=== PATIENT | female | born 1980 ===

== ENCOUNTER 2025-04-14 11:31 | Outpatient (REF) | payer MEDICAID, SELFPAY ==
--- NOTE | ~2025-04-14 | XR_ITS ---
EXAMINATION: XR CHEST CLINICAL INFORMATION: long h/o recurrent dyspnea, chest discomfort. COMPARISON: None available. TECHNIQUE: 2 views of the chest were obtained. FINDINGS: No significant abnormality is noted involving the heart, lungs, mediastinum, bony thorax or soft tissues. XR/XR chest 2V IMPRESSION: No acute disease. Electronically signed by: Morales Mercer MD 04/14/2025 11:50 AM EDT
--- OUTSIDE RECORDS SUMMARY | 2025-04-14 09:20 | XMS_ITS | Encounter Summary ---
Author Organization [employer] Address [address] [place] [address] [place] [address] Care Team Providers Care Licensed Massage Practitioner Name Role Phone Unavailable Primary Care Provider Unavailabl e Reason for Referral * PFT (Routine) - Authorized Specialty Diagnoses / Procedures Referred By Contac t Referred To Contact Diagnoses H/O chest pain H/O shortness of breath Procedures Pulmonary function test Jose Miller MD [address] [place] [phone] Phone: tel: fax: [address] Phone: tel: fax: Referral ID Status Reason Start Date Expiration Date V isits Requested Visits Authorized [id number] Authorized 04/14/2025 04/14/2026 1 1 Reason for Visit * Reason Comments Chest Pain With Breathing Encounter Details Date Type Department Care Team (Late st Contact Info) Description 04/14/2025 9:20 AM EDT Office Visit [facility] [address] [place] [address] [phone] Jose Miller MD [address] [place] [address] [phone] H/O chest pain (Primary Dx); H/O shortness of breath; Seasonal allergic rhinitis, unspecified trigger Social History Tobacco Use Types Packs/Day Years Used Date Smoking Tobacco: Never Passive Smoke Exposure: Never Smokeless Tobacco: Never Tobacco Cessation:Counseling Given: Not Answered Alcohol Use Standard Drinks/Week Comments Never 0 (1 standard drink = 0.6 oz pur e alcohol) Comments Unknown Sex and Gender Information Value Date Recorded Sex Assigned at Female 04/14/2025 8:37 AM EDT Legal Sex Female 3:37 PM EDT Gender Identity Female 04/14/2025 8:37 AM EDT Sexual Orientation Straight 04/14/2025 8: 37 AM EDT documented as of this encounter Last Filed Vital Signs Vital Sign Reading Time Taken Comments Blood Pressure 115/75 04/14/2025 9:02 AM EDT Pulse 79 04/14/2025 9:02 AM EDT Temperature 36.7 C (98.1 F) 04/14/2025 9:02 AM EDT Respiratory Rate 16 04/14/2025 9:02 AM EDT Oxygen Saturation 100% 04/14/2025 9:02 AM EDT Inhaled Oxygen Concentration - - Weight 77.1 kg (170 lb) 04/14/2025 9:02 AM EDT Height - - Body Mass Index - - documented in this encounter Progress Notes * Jose Miller MD - 04/14/2025 9:20 AM EDTAssociated Order(s): ECG 12 lead Pre-Procedure Diagnose(s): H/O chest pain; H/O shortness of breath Post-Procedure Diagnose(s): H/O chest pain; H/O shortness of breath Subjective Patient ID: Cathy Gilliam is a 44 y.o. female, new patient. Came from [facility] 01/2025. Last saw PCP there 11/2024. States tht she will be returning to live in [facility] in 1-2 months. 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 Cathy came to [facility] today because 1 week ago had recurrence intermittent retrosternal chest pain that worsens when she inhales, described as tightness, comes and goes. Has associated SOB. Symptoms started in [place] years ago. States has chronic dry cough. No wheezing, ?Fever. Has had no sx since last week. States that she was evaluated by library supervisor in [facility] in past, had echocardiogram, ?dx. Family hx: father had CVA. Grandmother had h/o asthma. Past med hx: allergic rhinitis, uterine myomas with abnormal uterine bleeding, anxiety, ? heart murmur . Past surgical hx: uterine myomectomy. Lives with . 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 Never Smoked. No EtOH. Illicit substances HPI The following portions of the chart were reviewed this encounter and updated as appropriate: Review of Systems Constitutional: Negative for fever. Respiratory: Negative for shortness of breath. Cardiovascular: Positive for chest pain. Gastrointestinal: Negative for abdominal pain. Skin: Negative for rash. Neurological: Negative for headaches. Objective Physical Exam Constitutional: Appearance: Normal appearance. HENT: Right Ear: Tympanic membrane, ear canal and external ear normal. Left Ear: Tympanic membrane, ear canal and external ear normal. Nose: Nose normal. Mouth/Throat: Mouth: Mucous membranes are moist. Pharynx: Oropharynx is clear. Eyes: Conjunctiva/sclera: Conjunctivae normal. Pupils: Pupils are equal, round, and reactive to light. Cardiovascular: Rate and Rhythm: Normal rate and regular rhythm. Heart sounds: No murmur heard. Pulmonary: Effort: Pulmonary effort is normal. Breath sounds: Normal breath sounds. Musculoskeletal: General: Normal range of motion. Cervical back: No tenderness. Skin: Findings: No rash. Neurological: Mental Status: She is alert. Gait: Gait is intact. Psychiatric: Mood and Affect: Mood normal. Behavior: Behavior normal. ECG 12 lead Date/Time: 04/14/2025 11:05 AM Performed by: Jose Miller MD Authorized by: Jose Miller MD Previous ECG: Previous ECG: Unavailable Interpretation: Interpretation: normal Rate: ECG rate: 71 ECG rate assessment: normal Rhythm: Rhythm: sinus rhythm Ectopy: Ectopy: none QRS: QRS axis: Normal QRS intervals: Normal QRS conduction: normal ST segments: ST segments: Normal T waves: T waves: normal Q waves: Abnormal Q-waves: not present Assessment/Plan Diagnoses and all orders for this visit: H/O chest pain Asymptomatic for past week. EKG: normal. Advised to go to the ED if chest tightness recurs. Unable to refer to cardiology because of the patient's health insurance. Return to clinic for concerns prior to returning to [facility] - Pulmonary function test; Future - XR Chest 2 Views; Future - ECG 12 lead H/O shortness of breath PFTs and chest x-ray ordered. Prescribed albuterol HFA with spacer to try if shortness of breath recurs. If no change with albuterol, go to the ED. - Pulmonary function test; Future - XR Chest 2 Views; Future - ECG 12 lead Seasonal allergic rhinitis, unspecified trigger Prescribed Flonase. Return to clinic if not improving Other orders - albuterol 108 (90 Base) MCG/ACT inhaler; Inhale 2 puffs every 4 (four) hours if needed for wheezing or shortness of breath. - Spacer/Aero-Holding Chambers (OptiChamber Tomasa) misc; 1 each every 4 (four) hours if needed (asthma). - fluticasone (Flonase Allergy Relief) 50 MCG/ACT nasal spray; Administer 1 spray into each nostrilOnce per day. Shake gently. Before first use, prime pump. After use, clean tip and replace cap. documented in this encounter Plan of Treatment Scheduled Orders Name Type Priority Associated Diagnoses Orde r Schedule Pulmonary function test PFT Routine H/O chest pain H/O shortness of breath Expected: 04/14/2025 (Approximate), Expires: 04/14/2026 documented as of this encounter Procedures Procedure Name Priority Date/Time Associated Diagnosis Comments XR CHEST 2 VIEWS Routine 04/14/2025 11:5 7 AM EDT H/O chest pain H/O shortness of breath ECG 12-LEAD Routine 04/14/2025 11:05 AM EDT H/O chest pain H/O shortness of breath documented in this encounter Results * XR Chest 2 Views (04/14/2025 11:57 AM EDT) Anatomical Region Laterality Modality Chest Radiographic Whit ging 04/14/2025 11:5 7 AM EDT Narrative 04/14/2025 11:53 AM EDT [address] [address] XRay Report Signed Patient: Cathy Burroughs MR#: [id number] : 1980 Acct:[id number] Age/Sex: 44 / F ADM Date: 04/14/25 Loc: [facility]X Attending Dr: Jose Miller MD Ordering Physician: JOSE MILLER MD Date of Service: 04/14/25 Procedure(s): XR chest 2V Accession Number(s): [id number] cc: JOSE MILLER MD Reason for Exam: long h/o recurrent dyspnea, chest discomfort. EXAMINATION: XR CHEST CLINICAL INFORMATION: long h/o recurrent dyspnea, chest discomfort. COMPARISON: None available. TECHNIQUE: 2 views of the chest were obtained. FINDINGS: No significant abnormality is noted involving the heart, lungs, mediastinum, bony thorax or soft tissues. XR/XR chest 2V IMPRESSION: No acute disease. Electronically signed by: Morales Mercer MD 04/14/2025 11:50 AM EDT RP Dictated By: Morales Mercer MD Signed By: <Electronically signed by Morales Mercer MD in OV> 04/14/25 1150 DD/ 1157 TD/TT: 04/14/25 1147 Computer Scientist: Procedure Note Donotuseinterpreter, Image - 04/14/2025 [place] [address] XRay Report Signed Patient: Cathy Burroughs MR#: [id number] : 1980Acct:[id number] Age/Sex: 44 / FADM Date: 04/14/25 [facility] Attending Dr: Jose Miller MD Ordering Physician: JOSE MILLER MD Date of Service: 04/14/25 Procedure(s): XR chest 2V Accession Number(s): [id number] cc: JOSE MILLER MD Reason for Exam: long h/o recurrent dyspnea, chest discomfort. EXAMINATION: XR CHEST CLINICAL INFORMATION: long h/o recurrent dyspnea, chest discomfort. COMPARISON: None available. TECHNIQUE: 2 views of the chest were obtained. FINDINGS: No significant abnormality is noted involving the heart, lungs, mediastinum, bony thorax or soft tissues. XR/XR chest 2V IMPRESSION: No acute disease. Electronically signed by: Morales Mercer MD 04/14/2025 11:50 AM EDT RP Dictated By: Morales Mercer MD Signed By: <Electronically signed by Morales Mercer MD in OV> 04/14/25 1150 DD/ 1157 TD/TT: 04/14/25 1147 Computer Scientist: Jose Miller MD IMG XR PROCEDURES Edited Result - Final * ECG 12 lead (04/14/2025 11:05 AM EDT) Jose Rodrigues MD - 04/14/2025 11:05 AM EDT Jose Miller MD 04/14/2025 1:53 PM ECG 12 lead Date/Time: 04/14/2025 11:05 AM Performed by: Jose Miller MD Authorized by: Jose Miller MD Previous ECG: Previous ECG: Unavailable Interpretation: Interpretation: normal Rate: ECG rate: 71 ECG rate assessment: normal Rhythm: Rhythm: sinus rhythm Ectopy: Ectopy: none QRS: QRS axis: Normal QRS intervals: Normal QRS conduction: normal ST segments: ST segments: Normal T waves: T waves: normal Q waves: Abnormal Q-waves: not present Jose Miller MD ECG ORDERABLES Final Result documented in this encounter Visit Diagnoses Diagnosis H/O chest pain- Primary H/O shortness of breath Seasonal allergic rhinitis, unspecified trigger documented in this encounter
--- OUTSIDE RECORDS SUMMARY | 2025-04-14 14:53 | XMS_ITS | Encounter Summary ---
Author Organization [employer] Address [address] [place] [address] [address] [place] [address] Care Team Providers Care Monument Setter Helper Name Role Phone Unavailable Primary Care Provider Unavailabl e Encounter Details Date Type Department Care Team (Latest Contact Info) Description 04/14/2025 Travel Social History Tobacco Use Types Packs/Day Years Used Date Smoking Tobacco: Never Passive Smoke Exposure: Never Smokeless Tobacco: Never Alcohol Use Standard Drinks/Week Comments Never 0 (1 standard drink = 0.6 oz pur e alcohol) Comments Unknown Sex and Gender Information Value Date Recorded Sex Assigned at Female 04/14/2025 8:37 AM EDT Legal Sex Female 3:37 PM EDT Gender Identity Female 04/14/2025 8:37 AM EDT Sexual Orientation Straight 04/14/2025 8 :37 AM EDT documented as of this encounter Plan of Treatment Not on file documented as of this encounter Visit Diagnoses Not on filedocumented in this encounter
--- OUTSIDE RECORDS SUMMARY | 2025-04-14 14:53 | XMS_ITS | Encounter Summary ---
Author Organization [employer] Address [address] [place] [address] [address] [place] [address] Care Team Providers Care Senior Administrative Support Name Role Phone Unavailable Primary Care Provider Unavailabl e Encounter Details Date Type Department Care Team (Late st Contact Info) Description 04/14/2025 Telephone [facility]LL[facility] [address] [place] [address] Tabitha aCll MD [address] [place] [address] Social History Tobacco Use Types Packs/Day Years [...] AM EDT documented as of this encounter Miscellaneous Notes * Telephone Encounter - Soila Dior - 04/14/2025 2:00 PM EDT Patient added to [facility] New Patient wait list as of 04/14/25. * Telephone Encounter - Gurvinder Vu - 04/14/2025 1:00 PM EDT Cathy Gilliam was seen by insurance enrollment department and can have a newpatient appointment scheduled. documented in this encounter Plan of Treatment Not on file documented as of this encounter Visit Diagnoses Not on filedocumented in this encounter
--- OUTSIDE RECORDS SUMMARY | 2025-04-14 14:53 | XMS_ITS | Clinical Summary ---
Author Organization [employer] Address [address] [place] [address] [address] [place] [address] Care Team Providers Care Search Lead Name Role Phone Unavailable Primary Care Provider Unavailabl e Allergies No known active allergies Medications albuterol 108 (90 Base) MCG/ACT inhaler Inhale 2 puffs every 4 (four) hours if needed for wheezing or shortness of breath. 18 g 1 5 04/14/20 26 Active Spacer/Aero-Hol ding Chambers (OptiChamber Tomasa) misc 1 each every 4 (four) hours if needed (asthma). 1 each 5 Active fluticasone (Flonase Allergy Relief) 50 MCG/ACT nasal spray Administer 1 spray into each nostril Once per day. Shake gently. Before first use, prime pump. After use, clean tip and replace cap. 16 g 1 5 04/14/20 26 Active Active Problems Problem Noted Date Diagnosed Date Seasonal allergic rhinitis 04/14/2025 History of myomectomy 04/14/2025 Anxiety 04/14/2025 Encounters Date Type Department Care Team Description 04/14/2025 9:20 AM EDT Office Visit [facility] [address] [place] [address] Jose Miller MD H/O chest pain (Primary Dx); H/O shortness of breath; Seasonal allergic rhinitis, unspecified trigger 04/14/2025 Telephone [facility] INS ENROLLMENT [address] [place] [address] Tabitha Call MD 04/14/2025 Travel from Last 3 Months Social History Tobacco Use Types Packs/Day Years [...] Orientation Straight 04/14/2025 8: 37 AM EDT Last Filed Vital Signs Vital Sign Reading [...] - - Body Mass Index - - Plan of Treatment Health Maintenance Due Date Last Done Comments Depression Screening 1980 HIV Screening 1980 SDOH Screening 1980 Disability Screening 1982 Alcohol/Substance Use Screening 1994 Family Planning (PISQ) 1997 HPV Vaccines (1 - 3-dose series) 1997 Hepatitis C Screening 2000 DTaP/Tdap/Td Vaccines (1 - Tdap) 2001 Hepatitis B Vaccines (1 of 3 - 19+ 3-dose series) 2001 Mammogram 2022 COVID-19 Vaccine (1 - 2023-2 5 season) 2025 Influenza Vaccine (#1) 2025 Tobacco Screening 04/14/2026 04/14/2025 Zoster Vaccines (1 of 2) 2032 RSV Patients and Pa tients Aged 60 years or older (1 - 1-dose 75+ series) 2057 HIB Vaccines Aged Out No longer eligi ble based on patient's age to complete this topic Hepatitis A Vaccines Aged Out No long er eligible based on patient's age to complete this topic IPV Vaccines Aged Out No longer eligi ble based on patient's age to complete this topic Meningococcal B Vaccine Aged Out No l onger eligible based on patient's age to complete this topic Meningococcal Vaccine Aged Out No malaika valdez eligible based on patient's age to complete this topic Pneumococcal Vaccine: Pediat rics (0 to 5 Years) and At-Risk Patients (6 to 49) Years Aged Out No longer eligi ble based on patient's age to complete this topic RSV under 20 months Aged Out No longe r eligible based on patient's age to complete this topic Rotavirus Vaccines Aged Out No longer eligible based on patient's age to complete this topic Procedures Procedure Name Priority Date/Time Associated Diagnosis Comments XR CHEST 2 VIEWS Routine 04/14/2025 11:5 7 AM EDT H/O chest pain H/O shortness of breath ECG 12-LEAD Routine 04/14/2025 11:05 AM EDT H/O chest pain H/O shortness of breath from Last 3 Months Results * XR Chest 2 Views (04/14/2025 11:57 AM EDT) Anatomical Region Laterality Modality Chest Radiographic Whit ging 04/14/2025 11:5 7 AM EDT Narrative 04/14/2025 11:53 AM EDT [address] [address] XRay Report Signed Patient: Cathy Burroughs MR#: [id number] : 1980 Acct:[id number] Age/Sex: 44 / F ADM Date: 04/14/25 Loc: HO.HHCX Attending Dr: Jose Miller MD Ordering Physician: JOSE MILLER MD Date of Service: 04/14/25 Procedure(s): XR chest 2V Accession Number(s): [id number] cc: JOSE MILLER MD Reason for Exam: [...] OV> 04/14/25 1150 DD/ 1157 TD/TT: 04/14/25 114 Trial Judge: Procedure Note Donotuseinterpreter, Image - 04/14/2025 [place] [address] XRay Report Signed Patient: Cathy Burroughs MR#: [id number] : 1980Acct:[id number] Age/Sex: 44 / FADM Date: 04/14/25 Loc: .HHCX Attending Dr: Jose Miller MD Ordering Physician: JOSE MILLER MD Date of Service: 04/14/25 Procedure(s): XR chest 2V Accession Number(s): [id number] cc: JOSE MILLER MD Reason for Exam: [...] 04/14/25 1150 DD/ 1157 TD/TT: 04/14/25 1147 Trial Judge: Jose Miller MD IMG XR PROCEDURES Edited [...] Jose Miller MD ECG ORDERABLES Final Result from Last 3 Months Insurance LIMITED HSN FULL
== END 2025-04-14 11:32 | disposition home or self-care (01) ==
LOC: HO.HHCX 11:31
PROVIDERS: Visit Provider Emergency Medicine
DX: Z87.898 Personal history of other specified conditions (principal)
CPT/HCPCS: 71046

== ENCOUNTER → 2025-04-14 11:34 | Outpatient (BNV) | payer MEDICAID, SELFPAY | PROVIDERS: Visit Provider Radiology Diagnostic Radiology | DX: R07.9 Chest pain, unspecified (principal) | CPT/HCPCS: 71046 ==

== ENCOUNTER 2025-07-27 11:39 | Outpatient (REF) | payer MEDICAID, OTHER, SELFPAY ==
--- OUTSIDE RECORDS SUMMARY | 2025-07-27 11:00 | XMS_ITS | Encounter Summary ---
Author Organization [employer] Address [address] [place] [address] Care Team Providers Care Coding Compliance Specialist Name Role Phone Magda Blunt MD Primary Care Provider [phone] Reason for Visit * Reason Comments Cervical Cancer Screening Encounter Details Date Type Department Care Team (Latest Contact Info) Description 07/27/2025 11:00 AM EST Procedure Visit [facility] [address] [place] [address] Magda Blunt MD [address] [place] [address] Cervical cancer screening (Primary Dx) Social History Tobacco Use Types Packs/Day Years Used Date Smoking Tobacco: Never Passive Smoke Exposure: Never Smokeless Tobacco: Never Alcohol Use Standard Drinks/Week Comments Never 0 (1 standard drink = 0.6 oz pur e alcohol) Depression Answer Date Recorded Patient Health Questionnaire-9 Score 0 07/27/2025 Patient Health Questionnaire-9 Score 0 07/27/2025 Last PHQ-9: Questionnaire Data Not on file 1 Housing Stability Answer Date Recorded What is your housing situation today? I have shekhar guy 07/27/[address] you li ve. Do you have problems with any of the following? None of the above 07/27/2025 Food Insecurity Answer Date Recorded Within the past 12 months, y ou worried that your food would run out before you got money to buy more: Never True 07/27/2025 Within the past 12 months,th e food you bought just didn't last and you didn't have enough money to get more: Never True Transportation Answer Date Recorded In the past 12 months, has l ack of transportation kept you from medical appts, meetings, work or from getting things needed for daily living? No 07/27/2025 Utilities Answer Date Recorded In the past 12 months, has t he electric, gas, oil or water company threatened to shut off services in your home? No 07/27/2025 Depression Answer Date Recorded Patient Health Questionnaire-2 Score 0 07/27/2025 Internet Access Answer Date Recorded Internet Access Q1 Yes 07/27/2025 Internet Access Q2 Not on file 07/27/2025 Comments Unknown Sex and Gender Information Value Date Recorded Sex Assigned at Female 04/14/2025 8:37 AM EDT Legal Sex Female 3:37 PM EDT Gender Identity Female 04/14/2025 8:37 AM EDT Sexual Orientation Straight 04/14/2025 8: 37 AM EDT documented as of this encounter Last Filed Vital Signs Vital Sign Reading Time Taken Comments Blood Pressure 124/82 07/27/2025 11:00 AM EST Pulse 76 07/27/2025 11:00 AM EST Temperature 37.1 C (98.7 F) 07/27/2025 11:00 AM EST Respiratory Rate 20 07/27/2025 11:00 AM EST Oxygen Saturation 98% 07/27/2025 11:00 AM EST Inhaled Oxygen Concentration - - Weight 77.2 kg (170 lb 3.2 oz) 07/27/2025 11:00 AM EST Height 167.6 cm (5' 6 ) 07/27/2025 11:00 AM EST Body Mass Index 27.47 07/27/2025 11:00 AM EST documented in this encounter Functional Status * SBIRT - Alcohol Question Answer Date of Assessment Author How many times in the past y ear have you had 5 or more (for men) or 4 or more (for women) drinks in a day? 0 07/27/2025 11:53 AM EST Bety Dumas MA Score 0 07/27/2025 11:53 AM EST Bety Rosenberg MA * SBIRT - Drugs Question Answer Date of Assessment Author How many times in the past y ear have you used an illegal drug or used a prescription medication for non-medical reasons? 0 07/27/2025 11:53 AM Beyt Moncada MA Score 0 07/27/2025 11:53 AM Bety Jordan MA * Over the past 2 weeks, how often have you been bothered by any of the following problems? Question Answer Date of Assessment Author Patient Health Questionnaire -2 Score 0 07/27/2025 11:52 AM Bety Moncada MA * Little interest or pleasure in doing things Answer Date of Assessment Author Not at all 07/27/2025 11:52 AM Bety Moncada MA * Feeling down, depressed, or hopeless Answer Date of Assessment Author Not at all 07/27/2025 11:52 AM Bety Moncada MA * Trouble falling or staying asleep, or sleeping too much Answer Date of Assessment Author Not at all 07/27/2025 11:52 AM Bety Moncada MA * Feeling tired or having little energy Answer Date of Assessment Author Not at all 07/27/2025 11:52 AM Bety Moncada MA * Poor appetite or overeating Answer Date of Assessment Author Not at all 07/27/2025 11:52 AM Bety Moncada MA * Feeling bad about yourself - or that you are a failure or have let yourself or your family down Answer Date of Assessment Author Not at all 07/27/2025 11:52 AM Bety Moncada MA * Trouble concentrating on things, such as reading the newspaper or watching television Answer Date of Assessment Author Not at all 07/27/2025 11:52 AM Bety Moncada MA * Moving or speaking so slowly that other people could have noticed? Or the opposite - being so fidgety or restless that you have been moving around a lot more than usual. Answer Date of Assessment Author Not at all 07/27/2025 11:52 AM Bety Moncada MA * Thoughts that you would be better off or hurting yourself in some way Answer Date of Assessment Author Not at all 07/27/2025 11:52 AM Bety Moncada MA * Patient Health Questionnaire-9 Score Answer Date of Assessment Author 0 07/27/2025 11:52 AM Bety Moncada MA * Over the last 2 weeks, how often have you been bothered by any of the following problems? Question Answer Date of Assessment Author Feeling nervous, anxious, or on edge 0 07/27/2025 11:52 AM Bety Moncada MA Not being able to stop or co ntrol worrying 0 07/27/2025 11:52 AM Bety Moncada MA Worrying too much about diff erent things 0 07/27/2025 11:52 AM Bety Moncada MA Trouble relaxing 0 07/27/2025 11:52 AM Bety Moncada MA Being so restless that it is hard to sit still 0 07/27/2025 11:52 AM Bety Moncada MA Becoming easily annoyed or irritable 0 07/27/2025 11:52 AM Bety Moncada MA Feeling afraid as if somethi ng awful might happen 0 07/27/2025 11:52 AM Bety Moncada MA LISSY-7 Total Score 0 07/27/2025 11:52 AM Bety Moncada MA documented as of this encounter Progress Notes * Magda Blunt MD - 07/27/2025 11:00 AM EST Subjective Patient ID: Cathy Gilliam is a 44 y.o. female who presents for Cervical Cancer Screening. 44 y.o. female here for annual well woman preventive exam. LMP: No LMP recorded. Sexual activity: Social History Substance and Sexual Activity Sexual activity: Yes control/protection: None intention: BC method: Smoking hx: Tobacco Use: Low Risk (07/27/2025) Tobacco Smoking Tobacco Use: Never Smokeless Tobacco Use: Never Passive Exposure: Never Alcohol use hx: Social History Substance and Sexual Activity Alcohol use: Never OBHx: The patient has never been . IPV: Denies IPV Reviewed family hx Review of patient's family history indicates: Problem: Diabetes Relation: Mother Name: Age of Onset: (Not Specified) Health Maintenance: No results found for: HMPAP , HMMAMMO , HMCOLON Review of Systems Constitutional: Negative for appetite change, fatigue and fever. HENT: Negative for congestion, postnasal drip and rhinorrhea. Eyes: Negative for discharge and redness. Respiratory: Negative for apnea, cough, chest tightness and shortness of breath. Cardiovascular: Negative for chest pain. Gastrointestinal: Negative for abdominal pain. Endocrine: Negative for polyphagia. Genitourinary: Negative for difficulty urinating, dysuria and urgency. Musculoskeletal: Negative for arthralgias. Neurological: Negative for dizziness, light-headedness, numbness and headaches. Hematological: Negative for adenopathy. Does not bruise/bleed easily. Objective BP 124/82 Pulse 76 Temp 98.7 ??F (37.1 ??C) (Oral) Resp 20 Ht 5' 6 (1.676 m) Wt 170 lb 3.2 oz (77.2 kg) SpO2 98% BMI 27.47 kg/m?? Physical Exam Vitals reviewed. Exam conducted with a certified nursing assistant instructor present. HENT: Head: Normocephalic and atraumatic. Pulmonary: Effort: Pulmonary effort is normal. Chest: Chest wall: No deformity, tenderness or crepitus. Breasts: Breasts are symmetrical. Right: Normal. No inverted nipple, mass, nipple discharge, skin change or tenderness. Left: Normal. No inverted nipple, mass, nipple discharge, skin change or tenderness. Genitourinary: Urethra: No prolapse. Vagina: Normal. Cervix: Normal. Rectum: Normal. Musculoskeletal: Cervical back: Normal range of motion. Lymphadenopathy: Upper Body: Right upper body: No supraclavicular, axillary or pectoral adenopathy. Left upper body: No supraclavicular, axillary or pectoral adenopathy. Psychiatric: Mood and Affect: Mood normal. Assessment/Plan Problem List Items Addressed This Visit Cervical cancer screening - Primary 44 y.o. here for cervical cancer screening. Will continue monitoring following ASCCP guidelines. Relevant Orders Pap Smear HPV High Risk with Reflex to Subtypes documented in this encounter Miscellaneous Notes * Assessment & Plan Note - Magda Blunt MD - 07/27/2025 11:39 AM EST Associated Problem(s): Cervical cancer screening 44 y.o. here for cervical cancer screening. Will continue monitoring following ASCCP guidelines. documented in this encounter Plan of Treatment Scheduled Orders Name Type Priority Associated Diagnoses Orde r Schedule Pap Smear Pathology and Cytology Routine Cervical cancer screening Ordered: 07/27/2025 HPV High Risk with Reflex to Subtypes Lab Routine Cervical cancer screening Ordered: 07/27/2025 documented as of this encounter Visit Diagnoses Diagnosis Cervical cancer screening- Primary Screening for malignant neoplasm of the cervix documented in this encounter Additional Health Concerns Assessment Noted Time PHQ-9 Depression Total Score: 0 07/27/20 11:52 AM EST documented as of this encounter Care Teams Coding Compliance Specialist Relationship Specialty Start Date End Date Magda Blunt MD [address] [place] [id number] PCP - General Family Medicine 07/19/25 documented as of this encounter
--- OUTSIDE RECORDS SUMMARY | 2025-07-28 11:16 | XMS_ITS | Clinical Summary ---
Author Organization [employer] Address [address] [place] [address] 7 [place] [address] Care Team Providers Care Crtts Name Role Phone Magda Blunt MD Primary Care Provider [phone] Allergies No known active allergies Medications * This document contains information received from the source organization and may not represent a complete record from that organization. albuterol 108 (90 Base) MCG/ACT inhaler Inhale [...] 16 g 1 5 04/14/20 26 Active Minoxidil (Minoxidil for Men) 5 % solution Apply 1 mL topically 2 times daily. 60 mL 1 5 Active Active Problems Problem Noted Date Diagnosed Date Cervical cancer screening 07/27/2025 Assessment & Plan (07/27/2025 11:39 AM EST): 44 y.o. here for cervical cancer screening. Will continue monitoring following ASCCP guidelines. Abnormal uterine bleeding 07/19/2025 Other fatigue 07/19/2025 History of uterine fibroid 05/22/2025 Pelvic pain 05/22/2025 Seasonal allergic rhinitis 04/14/2025 History of myomectomy 04/14/2025 Anxiety 04/14/2025 Encounters * This document contains information received from the source organization and may not represent a complete record from that organization. Date Type Department Care Team Description 07/27/2025 11:00 AM EST Procedure Visit [facility] [address] [place] [address] Magda Blunt MD Cervical cancer screening (Primary Dx) 07/27/2025 Travel 07/26/2025 Telephone [facility] [address] [place] [address] Magda Blunt MD chart prep 07/19/2025 1:15 PM EST Office Visit [facility] [address] [place] [address] Magda Blunt MD Abnormal uterine bleeding (Primary Dx); Encounter for health-related screening; Alopecia; Breast cancer screening by mammogram; Other fatigue; Anxiety; Encounter for immunization 07/19/2025 Travel 07/16/2025 Telephone [facility] [address] [place] [address] Siobhan Goncalves MA Chart Prep 07/12/2025 Patient Outreach [facility] [address] [place] [address] Magda Blunt MD Pre-visit Planning ([facility] unable to reach [facility]) 04/27/2025 Telephone [facility] [address] [place], [place] [phone] Dioni Colbert MD from Last 3 Months Immunizations Immunization Administration Dates Next Due Influenza, seasonal, injectable, preservative fr ee 07/19/2025 Tdap 07/19/2025 Family History Medical History Relation Name Comments Diabetes Mother Relation Name Status Comments Mother Social History Tobacco Use Types Packs/Day Years [...] Mass Index 27.47 07/27/2025 11:00 AM EST Plan of Treatment Health Maintenance Due Date Last Done Comments HIV Screening 1982 Family Planning (PISQ) 1997 HPV Vaccines (1 - 3-dose series) 1997 Hepatitis C Screening 2000 Hepatitis B Vaccines (1 of 3 - 19+ 3-dose series) 2001 Pap Smear 11/28/2003 Cervical Cancer Screening 2012 HPV/Cotest 2012 Mammogram 2022 COVID-19 Vaccine (1 - 2024-2 6 season) 2025 Disability Screening 07/19/2026 07/19/2025 Alcohol/Substance Use Screening 07/27/2026 07/27/2025 Depression Screening 07/27/2026 07/27/2025, 07/27/2025 SDOH Screening 07/27/2026 07/27/2025 Tobacco Screening 07/27/2026 07/27/2025 Zoster Vaccines (1 of 2) 2032 DTaP/Tdap/Td Vaccines (2 - T d or Tdap) 07/19/2035 07/19/2025 RSV Patients and Patients Aged 60 years or older (1 - 1-dose 75+ series) 2057 Influenza Vaccine Completed 07/19/2025 HIB Vaccines Aged Out No longer eligi [...] age to complete this topic Pneumococcal Vaccine: Pediatrics (0 to 5 Years) and At-Risk Patients (6 to 49) Years Aged Out No longer eligible b ased on patient's age to complete this topic RSV under 20 months Aged Out No longe r eligible based on patient's age to complete this topic Rotavirus Vaccines Aged Out No longer eligible based on patient's age to complete this topic Insurance [facility] HSN FULL Care Teams Crtts Relationship Specialty Start Date End Date Magda Blunt MD [address] [place] [id number] PCP - General Family Medicine 07/19/25
--- OUTSIDE RECORDS SUMMARY | 2025-07-28 11:16 | XMS_ITS | Encounter Summary ---
Author Organization [employer] Address [address] [place] [address] Care Team Providers Care Senior Research Associate Name Role Phone Magda Blunt MD Primary Care Provider [phone] Reason for Visit * Reason Onset Date Comments chart prep 07/26/2025 Encounter Details Date Type Department Care Team ([facility] st Contact Info) Description 07/26/2025 Telephone [facility] [address] [place] [address] Magda Blunt MD [address] [place] [address] chart prep Social History Tobacco Use Types Packs/Day Years [...] encounter Miscellaneous Notes * Telephone Encounter - Annika Reyes MA - 07/26/2025 10:21 AM EST Chart Prep Labs: not done Images: not done (appointment pending) Referrals: appointment pending Vaccines due: Covid, Hep B, and HPV Screenings: mammogram, STI screening, and PISQ Overdue care gaps: SBIRT, SDOH, PHQ-9, and LISSY-7 documented in this encounter Plan of Treatment Not on file documented as of this encounter Visit Diagnoses Not on filedocumented in this encounter Care Teams Senior Research Associate Relationship Specialty Start Date End Date Magda Blunt MD [address] [place] [address] PCP - General Family Medicine 07/19/25 documented as of this encounter
--- OUTSIDE RECORDS SUMMARY | 2025-07-28 11:16 | XMS_ITS | Encounter Summary ---
Author Organization [employer] Address [address] [facility] [address] [place] [address] Care Team Providers Care Greaser Operator Name Role Phone Magda Blunt MD Primary Care Provider [phone] Encounter Details Date Type Department Care Team (Latest Contact Info) Description 07/27/2025 Travel Social History Tobacco Use Types Packs/Day [...] Diagnoses Not on filedocumented in this encounter Additional Health Concerns Assessment Noted Time PHQ-9 Depression Total Score: 0 07/27/20 11:52 AM EST documented as of this encounter Care Teams Greaser Operator Relationship Specialty Start Date End Date Magda Blunt MD [address] [place] [address] PCP - General Family Medicine 07/19/25 documented as of this encounter
== END 2025-07-27 11:40 | disposition home or self-care (01) ==
LOC: HO.LNP 11:39
PROVIDERS: Visit Provider Family Medicine
DX: Z12.4 Encounter for screening for malignant neoplasm of cervix (principal)
CPT/HCPCS: 88175